=== PATIENT | male | born 1995 | race Caucasian/White ===

== ENCOUNTER 2018-03-20 01:19 | Emergency (ER) | payer OTHER ==
[~2018-03-20] VITALS: Ht 188 cm; Wt 81.7 kg
[~2018-03-20 01:19] MED LIST: AMOX500 PO; CODACE30 PO; Clobetasol Emol15 GM TP; FLUO20 PO; IBUP600 PO; METPHE18ER; METPHE20ER; METPHE20ER PO; OLAN5A MM; POLTRIOPSO OU; Peridex480 ML SS; RISP.25; ZYPREXA; [UNRECOGNIZED DRUG - REMARK]
[2018-03-20] MEDS ORDERED: Ultram50 MG PO (03:32)
[2018-03-20] MEDS ORDERED: Veetids 500500 MG PO (03:32)
== END 2018-03-20 03:41 | disposition home or self-care (01) ==
LOC: ER 01:19
DX: K08.89 Other specified disorders of teeth and supporting structures (principal); F17.200 Nicotine dependence, unspecified, uncomplicated
CPT/HCPCS: 99282

== ENCOUNTER 2018-05-22 12:09 | Emergency (ER) | payer OTHER ==
[~2018-05-22] VITALS: Ht 188 cm; Wt 79.4 kg
[~2018-05-22 12:09] MED LIST changes: +Ultram50 MG PO; +Veetids 500500 MG PO
[2018-05-22] MEDS ORDERED: Keflex500 MG PO (14:29)
== END 2018-05-22 14:46 | disposition home or self-care (01) ==
LOC: ER 12:09
DX: T23.171A Burn of first degree of right wrist, initial encounter (principal); T23.122A Burn of first degree of single left finger (nail) except thumb, initial encounter; T31.0 Burns involving less than 10% of body surface; L03.113 Cellulitis of right upper limb; L03.012 Cellulitis of left finger; X08.8XXA Exposure to other specified smoke, fire and flames, initial encounter; Y99.0 Civilian activity done for income or pay; F17.210 Nicotine dependence, cigarettes, uncomplicated
CPT/HCPCS: 99282

== ENCOUNTER 2018-06-09 04:52 | Emergency (ER) | payer OTHER ==
[~2018-06-09] VITALS: Ht 188 cm; Wt 78.5 kg
[~2018-06-09 04:52] MED LIST changes: +Keflex500 MG PO
[2018-06-09] MEDS ORDERED: Triamcinolone A15 GM TOP (05:19)
== END 2018-06-09 05:43 | disposition home or self-care (01) ==
LOC: ER 04:52
DX: R21 Rash and other nonspecific skin eruption (principal); L98.9 Disorder of the skin and subcutaneous tissue, unspecified; F17.210 Nicotine dependence, cigarettes, uncomplicated
CPT/HCPCS: 99282

== ENCOUNTER 2019-01-07 17:06 | Emergency (ER) | payer MEDICAID ==
[~2019-01-07] VITALS: Ht 188 cm; Wt 83.9 kg
[~2019-01-07 17:06] MED LIST changes: +Triamcinolone A15 GM TOP
[2019-01-07] MEDS ORDERED: PENVK500 PO (17:52)
== END 2019-01-07 17:59 | disposition home or self-care (01) ==
LOC: ER 17:06
DX: K04.7 Periapical abscess without sinus (principal); Z87.891 Personal history of nicotine dependence
CPT/HCPCS: 99282

== ENCOUNTER 2020-10-14 14:40 | Emergency (ER) | payer SELFPAY ==
[~2020-10-14] VITALS: Ht 188 cm; Wt 81.7 kg
[~2020-10-14 14:40] MED LIST changes: +NYST237S MT; +PENVK500 PO
[2020-10-14] MEDS ORDERED: AMOCLA875 PO (15:30)
== END 2020-10-14 15:42 | disposition home or self-care (01) ==
LOC: ER 14:40
DX: K04.7 Periapical abscess without sinus (principal); F17.200 Nicotine dependence, unspecified, uncomplicated
CPT/HCPCS: 99282

== ENCOUNTER 2023-08-18 11:38 | Emergency (ER) | payer OTHER ==
[~2023-08-18] VITALS: Ht 188 cm; Wt 72.6 kg
[~2023-08-18 11:38] MED LIST changes: +AMOCLA875 PO
[2023-08-18 11:45] VITALS: BP 149/93
[2023-08-18] MEDS ORDERED: CEPH500 PO (12:14)
[2023-08-18] MEDS ORDERED: Bactrim Ds Tab1 EACH PO (12:14)
== END 2023-08-18 12:40 | disposition home or self-care (01) ==
LOC: ER 11:38
DX: L03.115 Cellulitis of right lower limb (principal); L03.116 Cellulitis of left lower limb; F17.200 Nicotine dependence, unspecified, uncomplicated
CPT/HCPCS: 99282

== ENCOUNTER 2023-09-13 13:04 | Emergency (ER) | payer OTHER ==
[~2023-09-13] VITALS: Ht 188 cm; Wt 72.6 kg
[~2023-09-13 13:04] MED LIST changes: +Bactrim Ds Tab1 EACH PO; +CEPH500 PO
[2023-09-13 13:18] VITALS: BP 146/89
== END 2023-09-13 14:25 | disposition home or self-care (01) ==
LOC: ER 13:04
DX: L08.89 Other specified local infections of the skin and subcutaneous tissue (principal); S81.802D Unspecified open wound, left lower leg, subsequent encounter; S81.801D Unspecified open wound, right lower leg, subsequent encounter; F17.200 Nicotine dependence, unspecified, uncomplicated; X58.XXXD Exposure to other specified factors, subsequent encounter
CPT/HCPCS: 99281

== ENCOUNTER 2024-05-14 10:02 | Emergency (ER) | payer OTHER ==
[~2024-05-14] VITALS: Ht 188 cm; Wt 72.6 kg
[~2024-05-14 10:02] MED LIST changes: +DOXYCYCLINE HY100 M1 PO
[2024-05-14 10:21] VITALS: BP 124/100
[2024-05-14] MEDS ORDERED: Bactrim Ds Tab1 EACH PO (10:59)
== END 2024-05-14 11:22 | disposition home or self-care (01) ==
LOC: ER 10:02
DX: L02.415 Cutaneous abscess of right lower limb (principal); F17.200 Nicotine dependence, unspecified, uncomplicated
CPT/HCPCS: 99283